=== PATIENT | female | born 1970 | race Caucasian/White ===

== ENCOUNTER 2019-05-18 18:18 | Inpatient (IN) ==
[2019-05-18] MEDS ORDERED: ACETAMINOPHEN 325 MG TAB PO PRN (21:45)
[2019-05-18] MEDS ORDERED: ONDANSETRON INJ 2 MG/ML 2 ML VIAL IV PRN (21:45)
--- NOTE | 2019-05-18 23:01 | History & Physical Report ---
Date of Service May 18, 2019 Assessment & Plan (1) Shortness of breath: 48-year-old female was directly admitted on 18 May 2019 from [facility] for shortness of breath. Shortness of breath, concern for pneumonia: Infectious symptoms beginning about 3 days ago. Was kept for observation at OSH for "lung disease" and treated for COPD-like exacerbation. Patient says she went home feeling okay but acutely worsened this morning. Has been on azithromycin and prednisone 40 mg daily. She denies any known history of pulmonary disease but has been smoking 30+ pack years. - Per records at outside hospital (OSH): CTA chest notes interval development of a left pleural effusion, bilateral atelectatic changes, patchy areas of groundglass attenuation in the nondependent areas of the lung, and a 7 mm lesion in the right middle lobe as well as calcified nodule posterior in the left lung. WBC 34. Hemoglobin 13. D-dimer 1.88. Troponin negative. EKG NSR 75. BNP 630. Magnesium 1.7. Blood culture collected on 16 May noted no growth after 48 hours. - On arrival here, speaking comfortably, not tachycardic or tachypneic, afebrile, with SpO2 97% on room air. - Will start her on Zosyn for HAP coverage. Continue methylprednisolone 40 mg twice daily as well as scheduled duo nebs. Consult pulmonology given her CT findings. We will check an interval chest x-ray in a.m. Will give a sputum culture a try. Pulmonary nodule: Seen on OSH CT scan. Thyroid nodule: Mentioned on OSH CTA incidentally. Ongoing medical issues: - Gastritis: Was recently started on Protonix. Will continue here. Suspect her reported epigastric discomfort is more just related than abdominal. - Hyperlipidemia: Continue home Lipitor. - Recent UTI: Completed 4 days of Macrobid and is currently asymptomatic. Code status: Full code. Diet: N.p.o. at midnight in case of bronchoscopy tomorrow. DVT prophy: Lovenox. PT/OT: Deferred. Disbo: Admit to [facility] with telemetry. (2) Pneumonia: (3) Pulmonary nodule: (4) Gastritis: (5) Hyperlipidemia: History of Present Illness Primary Care Provider: ORTEGA TUBBS 48-year-old female was transferred from [facility] for shortness of breath and multiple findings on CTA chest. - Patient says beginning this past TuesdayJu she felt multiple myalgias and lightheaded. She says that her granddaughter was ill the week before with suspected pneumonia. The following day she developed a fever and occasionally productive but non-bloody cough. - She was seen at [facility] and kept overnight from Tuesday to for, as the patient puts it, "lung disease". Patient says she has no known underlying lung disease or other lung issues. She was discharged on azithromycin and prednisone. She says around that time she was feeling improved. - Earlier today (day of admit) she says she had the return of some shortness of breath with concurrent epigastric and upper back pain. This is worse with lying supine or with exertion, improved with Toradol and breathing treatments. She denies any generalized chest pain, generalized abdominal pain, nausea/vomiting/diarrhea, or other acute concerns. - Past medical history includes gastritis, migraines, hyperlipidemia, tobacco abuse. - Past surgical history includes tubal ligation. - Social history includes current smoker of 1-1.5 packs/day for over 30 years. Social alcohol use. Denies drug use. Lives with . Allergies Allergy/AdvReac Type Severity Reaction Status Date / Time No Known Allergies Allergy Unverified 05/19/19 00:22 Home Medications Home Medications Medication Instructions Recorded Confirmed Type Multi Vitamin 05/18/19 History atorvastatin 10 mg PO DAILY 05/18/19 05/18/19 History azithromycin 05/18/19 History ibuprofen 05/18/19 History ipratropium-albuterol [Combivent 05/18/19 History Respimat] nitrofurantoin macrocrystal 05/18/19 History pantoprazole 05/18/19 History prednisone 05/18/19 History Past Med/Surg History Social History Preferred Language: Setswana Communication Ability: Effective Beliefs That Will Affect Care: None Current Living Situation: Spouse Other Information That Helps Us Care for You: No Feels Safe at Home: Yes Safety Concerns: Feels Safe At This Time Smoking Status: Heavy tobacco smoker Tobacco Type: cigarettes Cigarettes Per Day: 1/2 a pack a day Do You Dip or Chew Tobacco: No Second Hand Exposure: Yes Tobacco Cessation Education Requested by Patient: No Hx Alcohol Use: Yes Alcohol type: other Hx Substance Use: No Review of Systems Review of Systems: Constitutional: Positive recent fevers and chills. Eyes: Denies any visual loss or diplopia ENT: Denies any ear/nose/throat pain or difficulty speaking or swallowing Respiratory: Positive shortness of breath. Denies hemoptysis. Cardiovascular: Denies any chest pain or feeling of edema Gastrointestinal: Positive epigastric discomfort. Denies nausea/vomiting/diarrhea. Musculoskeletal: Denies any acute extremity pains, myalgias, or focal weakness Skin: Denies any known acute rashes or lesions Neuro: Denies any headache, acute focal weakness or numbness, or difficulties with speech or swallow. Physical Exam Physical Exam: GENERAL: Awake, alert, well-appearing and speaking easily in full sentences, in no acute distress HENT: Normocephalic, atraumatic. Oropharynx unremarkable. EYES: Normal conjunctiva. Sclera non-icteric. NECK: Inspection normal. Non-tender. Supple and full ROM. No nuchal rigidity. CARDIAC: +S1S2 RRR, no murmurs. RESPIRATORY: Decreased breath sounds throughout. No focal areas of consolidation appreciated. On room air. GI: +BS, soft, non-distended. No tenderness to palpation. No rebound or guarding. EXTREMITIES: No pedal edema or calf tenderness. Moving all extremities naturally and easily. NEURO: No gross neuro deficits. Results & Data Vital Signs (Past 12 Hours) Vital Signs Temp Pulse Pulse Resp BP Pulse Ox 05/18/19 22:47 69 05/18/19 22:08 36.6 C 80 18 102/68 97 05/18/19 21:13 36.6 C 80 18 102/68 97 Code Status & VTE Plan Code Status Full code VTE Prophylaxis Plan VTE Prophylaxis will be ordered: Yes Supervising Physician Co-Signing Physician Notes Attending addendum: I have physically seen this patient, have supervised the medical residents activities, and agree with the H&P unless as otherwise noted. Assessment and Plan: All the shortness of breath/abnormal chest CT from [facility]/tobacco use disorder- Admit to monitored bed. Duonebs every 4 hours while awake and every 2 hours when necessary. Hold oral azithromycin and prednisone. Solu-Medrol 40 mg IV every 8 hours. Zosyn 4.5 g IV every 6 hours. Sputum Gram stain and culture. Guaifenesin extended release 60 mg p.o. twice daily. Nasal cannula oxygen if needed, to keep pulse ox around 95%. Results of chest x-rays and CT from outside hospital not currently available, but concerns regarding pulmonary nodules and of the findings, will therefore consult pulmonology. Thyroid nodules- Check TSH, free T4, free T3 and thyroid ultrasound. Gastritis- Continue pantoprazole 40 mg daily. Would benefit from tobacco cessation. Hyperlipidemia- Continue Lipitor. Check a fasting lipid panel if not performed recently. Remainder of orders and notations as noted. PG Care Time/CCT Total # of Minutes Spent Total Time Spent with Patient: Total time spent is greater than 50% in coordination of care (as documented) at patient's floor/unit and/or counseling patient: Resident Activity Tracking Resident Involvement: Resident Care Provided Care Provided: Adult Hospital Medicine
[2019-05-18] MEDS ORDERED: PIPERACILL/TAZOBAC CONSULT ACTIVE PRN (23:06)
[2019-05-18] MEDS ORDERED: PIPERACILLIN/TAZOBACTAM 4.5 GM in DEXTROSE 5% 100 ML IV SCH (23:15)
[2019-05-19] MEDS: PATIENT'S ALLERGY INFO NEEDS ENTERED SCH ×3 (00:02→01:09)
[2019-05-19] MEDS ORDERED: ALBUT/IPRATROP 3MG/0.5MG NEB 3 ML VIAL NEB PRN (00:21)
[2019-05-19] MEDS ORDERED: PIPERACILLIN/TAZOBACTAM 3.375 GM in DEXTROSE 5% 100 ML IV ONE (00:30)
[2019-05-19] MEDS: methylPREDNISolone 40 MG in SYRINGE 0 ML IV SCH ×2 (01:43→12:02)
[2019-05-19] MEDS: PIPERACILLIN/TAZOBACTAM 3.375 GM in DEXTROSE 5% 100 ML IV SCH ×3 (06:02→21:32)
[2019-05-19 06:48] LABS: Basophils # (auto) 0.03 K/uL (0-0.2); Basophils % (auto) 0.2 %; Eosinophils # (auto) 0.44 K/uL (0-0.5); Hematocrit (blood only) 36.1 % (37-47); Hemoglobin 12.6 g/dL (12.0-16.0); Immature Granulocytes # (auto) 0.05 K/uL (0.00-0.02); Immature Granulocytes % (auto) 0.3 %; Lymphocytes # (auto) 0.78 K/uL (1.2-3.4); Lymphocytes % (auto) 5.4 %; Mean Corpuscular Hgb Conc 34.9 g/dL (32-36); Mean Corpuscular Volume 89.8 fL (80-100); Mean Platelet Volume 10.8 fL (7.4-10.4); Monocytes # (auto) 0.38 K/uL (0.11-0.59); Monocytes % (auto) 2.6 %; Neutrophils # (auto) 12.79 K/uL (1.4-6.5); Neutrophils % (auto) 88.5 %; Platelet Count 258 K/uL (130-400); RDW Coefficient of Variation 13.5 % (11.5-14.5); RDW Standard Deviation 44.3 fL (36.4-46.3); Red Blood Count 4.02 M/uL (4.2-5.4); White Blood Count 14.47 K/uL (4.8-10.8)
[2019-05-19 07:01] LABS: INR 1.1 (0.9-1.1); Prothrombin Time 11.3 Seconds (9.0-12.0)
[2019-05-19] MEDS: ALBUT/IPRATROP 3MG/0.5MG NEB 3 ML VIAL NEB SCH ×4 (07:07→19:29)
[2019-05-19 07:16] LABS: BUN Creatinine Ratio 22.6 (10-20); Calcium 8.7 mg/dl (8.5-10.1); Creatinine Clr Calc Pharmacy 70.8 ml/min; Est GFR (African American) 98.8; Est GFR (Non-African American) 85.3; Potassium 3.8 mmol/L (3.5-5.1)
--- NOTE | 2019-05-19 07:18 | XRay Report ---
TWO VIEW CHEST CLINICAL HISTORY: Follow-up pneumonia. FINDINGS: PA and lateral chest radiographs are correlated with chest CT dated 05/16/2019. The cardiome diastinal silhouette is unremarkable. Diffuse coarsening of the interstitial may represent mild conge stive change. Emphysema is noted. There are small pleural effusions, left larger than right with biba silar consolidation. There is no pneumothorax. The bony thorax appears intact. IMPRESSION: 1. Emphysema. 2. Diffuse coarsening of the interstitium is suspicious for mild congestive failure/fluid overload, a nd this likely corresponds to diffuse intralobular septal thickening seen on the 05/16/[address] Clinical correlation will be required. 3. There are small pleural effusions with bibasilar consolidation, left larger than right. This could represent atelectasis versus an infectious/inflammatory pneumonitis. Clinical correlation will be re quired and radiographic follow-up to resolution is recommended. Electronically signed by: Donavan Maya M.D. 05/19/2019 7:17 AM
[2019-05-19] MEDS: guaiFENesin 600 MG TABCR PO SCH ×2 (07:52→20:05)
[2019-05-19] MEDS: PANTOprazole 40 MG TAB PO SCH (07:52)
[2019-05-19] MEDS: ENOXAPARIN INJ 40 MG/0.4 ML SYR SQ SCH (07:53)
[2019-05-19] MEDS: ATORVASTATIN 10 MG TAB PO SCH (07:53)
--- NOTE | 2019-05-19 17:58 | Hospitalist Progress Note ---
Date of Service May 19, 2019 Assessment & Plan (1) Pneumonia: Shortness of breath, concern for pneumonia: Infectious symptoms beginning about 3 days ago. Was kept for observation at OSH for "lung disease" and treated for COPD-like exacerbation. Patient says she went home feeling okay but acutely worsened the morning of admission. Had been on azithromycin and prednisone 40 mg daily. She denies any known history of pulmonary disease but has been smoking 30+ pack years. - Per records at outside hospital (OSH): CTA chest notes interval development of a left pleural effusion, bilateral atelectatic changes, patchy areas of groundglass attenuation in the nondependent areas of the lung, and a 7 mm lesion in the right middle lobe as well as calcified nodule posterior in the left lung. WBC 34. Hemoglobin 13. D-dimer 1.88. Troponin negative. EKG NSR 75. BNP 630. Magnesium 1.7. Blood culture collected on 16 May noted no growth after 48 hours. - Continue Zosyn. - Continue methylprednisolone 40 mg BID - Scheduled DuoNebs. - Consult pulmonology given her CT findings. (2) Pulmonary nodule: Seen on OSH CT scan. Also a thyroid nodule. Will need follow up. (3) Gastritis: Was recently started on Protonix. Will continue here. (4) Hyperlipidemia: Continue home Lipitor. (5) DVT prophylaxis: Lovenox Subjective Feeling better all around. Less shortness of breath. Less back pain. Review of Systems Review of Systems: All systems reviewed & are unremarkable except as noted in HPI & below Physical Exam Constitutional: WD/WN, vitals as above Eyes: EOM intact bilaterally; no conjunctival abnormality ENMT: external ear and nose normal, oropharynx normal Neck: trachea midline, no thyromegaly normal visual inspection Respiratory: normal respiratory effort, lungs clear to auscultation no respiratory distress Cardiovascular: RRR, no murmur, no edema Gastrointestinal (Abdomen): Inspection/Auscultation: abdomen normal to inspection; abdomen not distended Musculoskeletal: no cyanosis or clubbing, extremities motor strength 5/5 Skin: no rashes, warm and dry Neurologic: moves all extremities and awake Psychiatric: Orientation: alert, oriented to person and cooperative Results & Data Vital Signs (Past 12 Hours) Vital Signs Temp Pulse Resp BP Pulse Ox 05/19/19 15:28 97 H 16 97 05/19/19 11:21 82 16 94 05/19/19 11:19 36.8 C 80 16 102/64 95 05/19/19 07:14 36.7 C 72 16 100/61 94 05/19/19 07:09 75 16 98 PG Care Time/CCT Total # of Minutes Spent Total Time Spent with Patient: Total time spent is greater than 50% in coordination of care (as documented) at patient's floor/unit and/or counseling patient:
[2019-05-20] MEDS: methylPREDNISolone 40 MG in SYRINGE 0 ML IV SCH ×2 (00:10→12:42)
[2019-05-20] MEDS: PIPERACILLIN/TAZOBACTAM 3.375 GM in DEXTROSE 5% 100 ML IV SCH (06:14)
[2019-05-20] MEDS: ALBUT/IPRATROP 3MG/0.5MG NEB 3 ML VIAL NEB SCH (07:13)
[2019-05-20] MEDS: ENOXAPARIN INJ 40 MG/0.4 ML SYR SQ SCH (07:51)
[2019-05-20] MEDS: ATORVASTATIN 10 MG TAB PO SCH (07:53)
[2019-05-20] MEDS: guaiFENesin 600 MG TABCR PO SCH (07:53)
[2019-05-20] MEDS: PANTOprazole 40 MG TAB PO SCH (07:54)
[2019-05-20 09:29] LABS: Creatinine Clr Calc Pharmacy 81.6 ml/min; Est GFR (Non-African American) 98.3
[2019-05-20] MEDS ORDERED: IPRATROPIUM BROMIDE/ALBUTEROL respimat INH INH SCH (13:00)
--- NOTE | 2019-05-20 17:26 | Discharge Summary ---
Date of Service May 20, 2019 Admission HPI Per Admitting Provider 48-year-old female was transferred from [facility] for shortness of breath and multiple findings on CTA chest. - Patient says beginning this past Tuesday she felt multiple myalgias and lightheaded. She says that her granddaughter was ill the week before with suspected pneumonia. The following day she developed a fever and occasionally productive but non-bloody cough. - She was seen at [facility] and kept overnight from Tuesday to for, as the patient puts it, "lung disease". Patient says she has no known underlying lung disease or other lung issues. She was discharged on azithromycin and prednisone. She says around that time she was feeling improved. - Earlier today (day of admit) she says she had the return of some shortness of breath with concurrent epigastric and upper back pain. This is worse with lying supine or with exertion, improved with Toradol and breathing treatments. She denies any generalized chest pain, generalized abdominal pain, nausea/vomitin g/diarrhea, or other acute concerns. - Past medical history includes gastritis, migraines, hyperlipidemia, tobacco abuse. - Past surgical history includes tubal ligation. - Social history includes current smoker of 1-1.5 packs/day for over 30 years. Social alcohol use. Denies drug use. Lives with . Principal Diagnosis Pneumonia Discharge Exam Constitutional WD/WN, vitals as above Eyes EOM intact bilaterally; no conjunctival abnormality ENMT external ear and nose normal, oropharynx normal Neck trachea midline, no thyromegaly normal visual inspection Respiratory normal respiratory effort, lungs clear to auscultation no respiratory distress Cardiovascular RRR, no murmur, no edema Gastrointestinal (Abdomen) Inspection/Auscultation: abdomen normal to inspection; abdomen not distended Musculoskeletal no cyanosis or clubbing, extremities motor strength 5/5 Skin no rashes, warm and dry Neurologic moves all extremities and awake Psychiatric Orientation: alert, oriented to person and cooperative Discharge Data Allergies Allergy/AdvReac Type Severity Reaction Status Date / Time No Known Allergies Allergy Unverified 05/19/19 00:22 Consultations 05/18/19 23:01 Consult Pulmonology Routine Hospital Course (1) Pneumonia: Shortness of breath, concern for pneumonia: Infectious symptoms beginning about 3 days ago. Was kept for observation at [facility] for "lung disease" and treated for COPD-like exacerbation. Patient says she went home feeling okay but acutely worsened the morning of admission. Had been on azithromycin and prednisone 40 mg daily. She denies any known history of pulmonary disease but has been smoking 30+ pack years. - Per records at outside hospital: CTA chest notes interval development of a left pleural effusion, bilateral atelectatic changes, patchy areas of groundglass attenuation in the nondependent areas of the lung, and a 7 mm lesion in the right middle lobe as well as calcified nodule posterior in the left lung. WBC 34. Hemoglobin 13. D-dimer 1.88. Troponin negative. EKG NSR 75. BNP 630. Magnesium 1.7. Blood culture collected on 16 May noted no growth after 48 hours. - Started Zosyn in the hospital -> Switched to Augmentin on discharge for 3 more days. - Will finish steroid taper from [facility] - Will need to follow up with PCP for repeat imaging in 4-6 weeks. Should also get lung function tests to test for COPD given her CXR showed some emphysema changes. (2) Pulmonary nodule: Seen on OSH CT scan. Also a thyroid nodule. Will need follow up. (3) Gastritis: Was recently started on Protonix. Will continue here. (4) Hyperlipidemia: Continue home Lipitor. (5) DVT prophylaxis: Lovenox Total Time Total Time Spent Total Time Spent (In Minutes): 35 Discharge Plan Discharge Items Patient Disposition: Home - Self-Care Reason For Visit: SOB Discharge Diagnosis: Shortness of breath, pneumonia Discharge Goals: Decrease discomfort and Improve disease control Activity: Resume your previous activity Non-emergency contact: Primary Care Provider Call non-emergency contact if: your symptoms worsen and your temperature is above 101 Follow-up/Referrals: ORTEGA TUBBS PA [Primary Care Provider] - Diet: Regular Addtl Provider Instructions: Ms. Awad, You were in the hospital for shortness of breath and cough that we are concerned was caused by a pneumonia. We started you on IV antibiotics and steroids, and you got better quite quickly. We would like you to follow up with your PCP on Tuesday to make sure you are getting better. In the mean time, please finish the course of steroids and antibiotic that [facility] gave you. We are also adding an additional antibiotic that has a broader coverage to try to make sure the pneumonia does not come back. Please take your first dose of Augmentin tonight before bed, then 2 times per day until it is gone. We are also prescribing a cough medication to try to help reduce your cough until your lungs heal. Your PCP can send you for pulmonary testing and a repeat chest x-ray in 4-6 weeks after you are feeling better. [facility] did see a small (7mm) pulmonary nodule on the CT scan at their facility, so you may even need a repeat CT scan in 3-6 months, but you can follow up with your PCP or a dredge pumper in the future for that. There was also a thyroid nodule seen which is also likely benign (harmless). Prescriptions: New amoxicillin-pot clavulanate [Augmentin] 875-125 mg tablet 1 tab PO Q12H Qty: 7 RF: 0 albuterol sulfate 90 mcg/actuation HFA aerosol inhaler 2 puffs INH Q4H PRN (Reason: shortness of breath or wheezing) Qty: 6.7 RF: 0 benzonatate [Tessalon Perles] 100 mg capsule 100 mg PO TID PRN (Reason: cough) Qty: 30 RF: 0 Continued azithromycin 500 mg tablet RF: 0 atorvastatin 10 mg Tablet 10 mg PO DAILY RF: 0 prednisone 20 mg tablet RF: 0 pantoprazole 40 mg tablet,delayed release (DR/EC) RF: 0 ibuprofen 200 mg Tablet RF: 0 Combivent Respimat 20-100 mcg/actuation mist RF: 0 Multi Vitamin RF: 0 Discontinued nitrofurantoin macrocrystal 100 mg capsule RF: 0 Stand-Alone Forms: [facility] Discharge Orders: Discharge Order (Routine); Ordered 05/20/19 Ordered By: Dakota Alatorre Admission Data Admit Date/Time: 05/18/19 21:04 Attending Provider: Dakota Alatorre Admit Provider: Lowell Ceron Primary Care Provider: ORTEGA TUBBS Other Providers: Mary Tapia Service: Telemetry Medical Other Interventions: Discharge Summary Assessment (RN) Last Done: 05/20/19 12:20 DC Date/Time DO NOT enter until pt leaves facility: 05/20/19 13:00
== END 2019-05-20 13:00 | disposition home or self-care (01) | DRG 195 ==
LOC: 2W 21:04 → SUATTDRO 21:04 → 2W 21:12